=== PATIENT | female | born 1995 | race Caucasian/White ===

== ENCOUNTER 2024-02-03 21:56 | Emergency (ER) | payer OTHER ==
[2024-02-03] MEDS ORDERED: Ondansetron ODT 4 MG TAB ONE ×2 (22:41→22:44)
[2024-02-03] MEDS ORDERED: Acetaminophen 500 MG TAB ONE (22:42)
[2024-02-03] MEDS ORDERED: diphenhydrAMINE 25 MG CAP ONE (23:16)
== END 2024-02-03 23:35 | disposition home or self-care (01) ==
LOC: MADERS 21:56
DX: O21.9 Vomiting of pregnancy, unspecified (principal); O99.891 Other specified diseases and conditions complicating pregnancy; O99.282 Endocrine, nutritional and metabolic diseases complicating pregnancy, second trimester; O99.512 Diseases of the respiratory system complicating pregnancy, second trimester; E03.9 Hypothyroidism, unspecified; Z3A.15 15 weeks gestation of pregnancy
CPT/HCPCS: 99283; Q0162